=== PATIENT | male | born 1970 | race Caucasian/White ===

== ENCOUNTER 2017-07-16 12:18 | Emergency (ER) | payer OTHER ==
--- NOTE | 2017-07-16 12:38 | ER Document Report ---
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 He was originally arrested for resisting arrest and driving infraction. 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 (ROEL ARREGUIN) Review of Systems - Review of Systems Constitutional: No symptoms reported EENT: No symptoms reported Cardiovascular: No symptoms reported Respiratory: No symptoms reported Gastrointestinal: No symptoms reported Genitourinary: No symptoms reported Male Genitourinary: No symptoms reported Musculoskeletal: No symptoms reported Skin: No symptoms reported Hematologic/Lymphatic: No symptoms reported Neurological/Psychological: See HPI <ROEL ARREGUIN - Last Filed: 07/16/17 19:21> Physical Exam - Vital signs Interpretation: Tachycardic - General General appearance: Appears well, Alert, Other - not paying attention - HEENT Head: Normocephalic, Atraumatic Eyes: Normal Pupils: PERRL Neck: Supple - Respiratory Respiratory status: No respiratory distress Chest status: Nontender Breath sounds: Normal Chest palpation: Normal - Cardiovascular Rhythm: Regular Heart sounds: Normal auscultation Murmur: No - Abdominal Inspection: Normal Distension: No distension Bowel sounds: Normal Tenderness: Nontender. No: Tender Organomegaly: No organomegaly - Back Back: Normal, Nontender - Extremities General upper extremity: Normal inspection, Nontender, Normal color, Normal ROM , Normal temperature General lower extremity: Normal inspection, Nontender, Normal color, Normal ROM , Normal temperature, Normal weight bearing. No: Prince's sign - Neurological Neuro grossly intact: Yes Cognition: Normal Orientation: AAOx4 Nan Coma Scale Eye Opening: Spontaneous Nan Coma Scale Verbal: Oriented [place] Coma Scale Motor: Obeys Commands [place] Coma Scale Total: 15 Speech: Normal Motor strength normal: LUE, RUE, LLE, RLE Sensory: Normal - Psychological Associated symptoms: Normal affect, Normal mood - Skin Skin Temperature: Warm Skin Moisture: Dry Skin Color: Normal Location of irregularity: Face - see above <ROEL ARREGUIN - Last Filed: 07/16/17 19:21> <ANKITA ANDERSON - Last Filed: 07/17/17 10:40> <EVER HARRIS - Last Filed: 07/17/17 10:52> - Vital signs Vitals: Temp Pulse Resp BP Pulse Ox 98.5 F 116 H 16 146/76 H 96 07/16/17 12:38 07/16/17 12:38 07/16/17 12:38 07/16/17 12:38 07/16/17 12:38 - HEENT Notes: skin lesions on face scattered, red, no scabs or skin breakdwon (ROEL ARREGUIN) - Extremities Notes: IV injection sites not infected (ROEL ARREGUIN) Course - Laboratory Result Diagrams: 07/16/17 13:05 07/16/17 13:05 <ROEL ARREGUIN - Last Filed: 07/16/17 19:21> - Laboratory Result Diagrams: 07/16/17 13:05 07/16/17 13:05 <ANKITA ANDERSON - Last Filed: 07/17/17 10:40> - Laboratory Result Diagrams: 07/16/17 13:05 07/16/17 13:05 <EVER HARRIS - Last Filed: 07/17/17 10:52> - Re-evaluation Re-evalutation: 07/16/17 13:44 Spoke with [facility] with psych who also spoke to the [facility] deputy here to determine what the shelter exactly wanted us to do. They wanted him checked out. He is incarcerated. We cannot do IVC paperwork until that is resolved. 07/16/17 14:58 Patient tried to gouge his eyes out with his fingers and run away with restraints on. Dr. Anderson has evaluated via telephone with the psych person here and wants him started on Haldol 5 mg every 8 hours as needed and Cogentin 1 mg daily while on Haldol. The [facility] department will stay with the patient while he is in the emergency department. 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 They needed to put four-point restraints on the patient to protect his safety I put a order in for 4 hours will remove as soon as possible if he calms after the IM injection. 07/16/17 15:03 Chest x-ray and urine are negative for infection. Amphetamine test on the urine drug screen had a interfering substance did not request verification test. 07/16/17 15:04 Checked on the patient again and he is a little diaphoretic of asked the nurse to retake the vital signs he is in restraints and is staring off into space but he does look at me when I call his name but is unable to answer questions. 07/16/17 19:23 Report given at the bedside to Bunny RYAN , the patient is resting quietly asleep. Vital signs are stable. (ROEL ARREGUIN) - Vital Signs Vital signs: Temp Pulse Resp BP Pulse Ox 98.1 F 75 18 115/60 100 07/17/17 08:29 07/17/17 08:29 07/17/17 08:29 07/17/17 08:29 07/17/17 08:29 - Laboratory Laboratory results interpreted by me: 07/16/17 07/16/17 07/16/17 13:05 13:05 13:05 WBC 18.8 H RDW 14.2 H Seg Neutrophils % 85.5 H Lymphocytes % 5.9 L Absolute Neutrophils 16.0 H Absolute Monocytes 1.6 H Urine Protein 100 H Urine Ketones 20 H Urine Blood SMALL H Ur Leukocyte Esterase TRACE H Salicylates < 1.0 L Acetaminophen < 10 L Discharge <ROEL ARREGUIN - Last Filed: 07/16/17 19:21> <ANKITA ANDERSON - Last Filed: 07/17/17 10:40> <EVER HARRIS - Last Filed: 07/17/17 10:52> - Discharge 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 You reported a lengthy history of/drug abuse and indicated an interest in detox/ drug rehabilitation programs. At this time you are incarcerated with [facility]'s Office and will be returning to the [facility] upon discharge. Resource information for drug / alcohol rehabilitation centers have been provided to you so that upon your release from shelter, you are free to voluntarily pursue treatment. Amphetamine Abuse Amphetamines are addicting stimulants. Amphetamines overstimulate the nervous system and give a false feeling of power and mastery. These drugs may be obtained as prescription pills for weight loss, narcolepsy, or attention- deficit disorder. More often they're bought as an illegal street drug, methamphetamine (crank, crystal, speed). Using amphetamines repeatedly can lead to serious medical problems including malnutrition, severe depression, and paranoia. It can take increasing amounts to feel good. Eventually, there will be a "burn out." When you go off amphetamines there is a period of depression that may last for weeks or even months. High doses of amphetamines can cause seizures, confusion, hallucinations, delusions, high blood pressure, muscle damage, heart damage, or sudden . Many times these deadly complications occur even with "normal" doses. Injection of amphetamines is risky for abscesses, endocarditis (heart infection), pneumonia, and AIDS. Withdrawal from amphetamines often causes anxiety, depression, and drug cravings. Some users become paranoid and psychotic. There may be cramps, nausea , and vomiting. Many treatment programs are available, but you must make the decision to quit. Medication can be prescribed to control the symptoms of amphetamine toxicity (beta blockers or benzodiazepines). Withdrawal symptoms may require tranquilizers.
[2017-07-16 13:32] LABS: ABSOLUTE BASOPHILS # (AUTO) 0.1 10^3/uL (0.0-0.2); ABSOLUTE LYMPHOCYTES (AUTO) 1.1 10^3/uL (0.5-4.7); ABSOLUTE MONOCYTES (AUTO) 1.6 10^3/uL (0.1-1.4); BASOPHILS % (AUTO) 0.3 % (0-2); HEMATOCRIT 41.5 % (37.9-51.0); LYMPHOCYTES % (AUTO) 5.9 % (13-45); MEAN CORPUSCULAR HEMOGLOBIN 28.8 pg (27.0-33.4); MEAN CORPUSCULAR HGB CONC 33.7 g/dL (32.0-36.0); MEAN CORPUSCULAR VOLUME 86 fl (80-97); MONOCYTES % (AUTO) 8.3 % (3-13); PLATELET COUNT 382 10^3/uL (150-450); RED BLOOD COUNT 4.85 10^6/uL (4.35-5.55); RED CELL DISTRIBUTION WIDTH 14.2 % (11.5-14.0); SEGMENTED NEUTROPHILS % (AUTO) 85.5 % (42-78); TOTAL CELLS COUNTED % (AUTO) 100 %; WHITE BLOOD COUNT 18.8 10^3/uL (4.0-10.5)
[2017-07-16 13:36] LABS: APPEARANCE,URINE CLOUDY; BILIRUBIN,URINE NEGATIVE (NEGATIVE); COLOR,URINE YELLOW; GLUCOSE, URINE NEGATIVE (NEGATIVE); KETONES,URINE 20 mg/dL (NEGATIVE); LEUKOCYTE ESTERASE,URINE TRACE (NEGATIVE); NITRITE,URINE NEGATIVE (NEGATIVE); PROTEIN,URINE 100 mg/dL (NEGATIVE); UROBILINOGEN,URINE NEGATIVE mg/dL (<2.0)
--- NOTE | 2017-07-16 13:46 | EKG REPORT ---
SEVERITY:- OTHERWISE NORMAL ECG - SINUS TACHYCARDIA : Confirmed by: Cole Stevens MD 16-Jul-2017 13:45:38
[2017-07-16 13:49] LABS: URINE BARBITURATES SCREEN NEGATIVE; URINE BENZODIAZEPINES SCREEN NEGATIVE; URINE COCAINE SCREEN NEGATIVE; URINE MARIJUANA (THC) SCREEN NEGATIVE; URINE METHADONE SCREEN NEGATIVE; URINE PHENCYCLIDINE SCREEN NEGATIVE
[2017-07-16 13:57] LABS: ALANINE AMINOTRANSFERASE 21 U/L (21-72); ALBUMIN 4.5 g/dL (3.5-5.0); ALKALINE PHOSPHATASE 92 U/L (38-126); ANION GAP 12 (5-19); ASPARTATE AMINO TRANSFERASE 39 U/L (17-59); BILIRUBIN,DIRECT 0.1 mg/dL (0.0-0.4); BILIRUBIN,TOTAL 0.5 mg/dL (0.2-1.3); BLOOD UREA NITROGEN 16 mg/dL (7-20); CALCIUM 9.7 mg/dL (8.4-10.2); CARBON DIOXIDE 26 mmol/L (22-30); CHLORIDE 101 mmol/L (98-107); GLUCOSE 95 mg/dL (75-110); POTASSIUM 4.9 mmol/L (3.6-5.0); SODIUM 139.3 mmol/L (137-145); TOTAL PROTEIN 6.9 g/dL (6.3-8.2)
[2017-07-16 13:58] LABS: ACETAMINOPHEN < 10 ug/mL (10-30); ALCOHOL < 10 mg/dL (NONE DETECTED); SALICYLATE < 1.0 mg/dL (2.0-20.0)
[2017-07-16] MEDS ORDERED: HALOPERIDOL LACTATE INJ 5 MG/1 ML VIAL IM ONE ×2 (14:31→14:33)
[2017-07-16] MEDS ORDERED: BENZTROPINE MESYLATE 1 MG TABLET PO ONE (14:32)
[2017-07-16] MEDS ORDERED: HALOPERIDOL 5 MG TABLET PO ONE (14:32)
[2017-07-16] MEDS ORDERED: BENZTROPINE MESYLATE INJ 2 MG/2 ML AMPULE IM ONE (14:34)
--- NOTE | 2017-07-16 14:50 | RADIOLOGY REPORT (SQ) ---
EXAM DESCRIPTION: CHEST SINGLE VIEW COMPLETED DATE/TIME: 07/16/2017 2:22 pm REASON FOR STUDY: elevated white counyt COMPARISON: 10/21/2009 EXAM PARAMETERS: NUMBER OF VIEWS: One view. TECHNIQUE: Single frontal radiographic view of the chest acquired. RADIATION DOSE: NA LIMITATIONS: None. FINDINGS: LUNGS AND PLEURA: No opacities, masses or pneumothorax. No pleural effusion. MEDIASTINUM AND HILAR STRUCTURES: No masses. Contour normal. HEART AND VASCULAR STRUCTURES: Heart normal in size. Normal vasculature. BONES: No acute findings. HARDWARE: None in the chest. OTHER: No other significant finding. IMPRESSION: NO ACUTE RADIOGRAPHIC FINDING IN THE CHEST. TECHNICAL DOCUMENTATION: JOB ID: [id number] [employer]- All Rights Reserved Reading location - IP/workstation name: [email or web address]
[2017-07-16] MEDS ORDERED: HALOPERIDOL 5 MG TABLET PO PRN (14:59)
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
[2017-07-16] MEDS ORDERED: IBUPROFEN 600 MG TABLET PO ONE (22:34)
[2017-07-17 08:30] VITALS: BP 115/60
--- NOTE | 2017-07-17 10:06 | ER Document Report ---
Doctor's Note Notes: 07/17/17 10:04 Rounds: Chart reviewed and patient interviewed. Patient likely to be discharged today. Says any something to calm him down. Vital signs are all essentially normal. Lab studies showed a white cell count of 18,800, and his drug screen was positive for amphetamines. Otherwise his labs are essentially normal. Patient has no signs of infection anywhere to account for the elevated white cell count and is likely stress related, both physical and psychiatric. Patient appears to be medically stable for transfer or discharge. Abdoul Das MD
--- NOTE | 2017-07-17 15:10 | PSYCHOLOGICAL NOTE ---
Psych Note - Psych Note Psych Note: Met with Patient who was sleeping upon entry to his room. A compressor station operator was also present as Patient is currently incarcerated for two charges. Patient presented yesterday under influence of methamphetamine with psychosis. His psychosis was absent today and he minimally participated in the interview. He reported he uses many different kinds of drugs frequently to include methamphetamine, cocaine, fredy, marijuana, crack, heroin, etc. He reported he mostly snorts the cocaine and meth, but injects the heroin. Patient also reported he drinks approximately 2-3 40oz [place] Ice per day and becomes intoxicated after 3 of the 40oz beers. Patient reports he drinks to intoxication every day and has done so for many years. He stated he would like to go to detox instead of retirement, which he was advised he would need to take care of his incarceration before rehabilitation and / or drug treatment on an inpatient basis could begin. Patient denied any type of previous treatment or medications to assist for mental health or substance abuse problems. Patient was alert and oriented to person, place, time, and circumstance. Mood was irritable and uncooperative. Affect was mood congruent. He denied suicidal / homicidal ideation, intent or plan. He denied auditory / visual hallucinations and no delusions were noted. Thought processes were linear, rational, and organized. Conversational speech was within normal limits for rate , tone, and prosody. Intellectual abilities were estimated within the average range. eye contact was well maintained. Attention and concentration was within normal limits. Insight, judgment and impulse control are historically poor. No Medication Recommendations. Diagnoses: 1. 292.89 (F15.222) Amphetamine Intoxication with Perceptual Disturbance, Moderate 2. 303.90 (F10.20) Alcohol Use Disorder, Severe (per Patient report) Impression / Plan: Patient is psychiatrically clear for discharge. He denied suicidal / homicidal ideation, intent or plan. He is not demonstrating perceptual disturbance and appears to be within normal limits. Patient is incarcerated with the [facility] and cleared to return to the Assisted. Medical staff have been in contact with medical from the retirement and provided report with regard to medical status. Patient provided psycho-education regarding negative effects of drug/ alcohol use and provided resources for detox and inpatient rehabilitation facilities for voluntary admittance upon release from retirement. ED Physician in agreement with recommendation and disposition.
[2017-07-18] MEDS ORDERED: BENZTROPINE MESYLATE 1 MG TABLET PO SCH (10:00)
== END 2017-07-17 11:05 | disposition other institution (70) ==
LOC: ER 12:18
DX: F15.159 Other stimulant abuse with stimulant-induced psychotic disorder, unspecified (principal); R45.851 Suicidal ideations; F17.200 Nicotine dependence, unspecified, uncomplicated; R00.0 Tachycardia, unspecified; Z78.1 Physical restraint status
CPT/HCPCS: 93005; 99285; 96372; 36415; 80307 ×4; 85025; 80053; 81001; 71045; 93010; J0515; J1630